=== PATIENT | male | born 2000 | race Caucasian/White ===

== ENCOUNTER 2025-04-09 22:50 | Emergency (ER) | payer OTHER, SELFPAY ==
[2025-04-09 22:50] VITALS: BP 144/93; PULSE 86; RESP 18; TEMP 36.6; O2SAT 98; BMI 18.8
--- NOTE | 2025-04-09 22:59 | EDS_ITS ---
HPI History of Present Illness Chief Complaint: Lower Extremity Injury Informant: patient and friend Narrative Narrative: Healthy 24-year-old injured his right foot almost 2 days ago. States initially could not walk on it due to pain, but now has been able to although it is painful. He states he got his feet tangled up in some things on the ground and somehow injured them, he is not sure if it twisted or if he smacked it on something, but he did sustain a little scrape within the part of the foot within his shoe that had some minor bleeding at the time. He denies any systemic symptoms such as fevers or chills, pain has been in the same place that was the entire time which is the lateral aspect of his right forefoot and a little bit in the middle of his foot laterally as well. Can move the ankle without any difficulty it is not bothering him and no other injuries or pain. PFSH PFSH Medical History no medical history no medical history Home Medications ?Medication ?Instructions ?Recorded ?Last Taken ?Type NK 04/09/25 Unknown History Allergy/AdvReac Type Severity Reaction Status Date / Time No Known Allergies Allergy Verified 04/09/25 22:51 ROS ROS ED Constitutional Constitutional ED: Denies chills or fever(s) Musculoskeletal Musculoskeletal: Reports extremity pain; Denies neck pain Integumentary Reports Abrasions; Denies rash or wounds Neurologic Neurologic: Denies paresthesias or weakness EXAM Physical Exam Const Vital Signs: 04/09/25 22:50 Temperature 97.9 F Temperature Source Oral Pulse Rate 86 Respiratory Rate 18 Blood Pressure 144/93 H Blood Pressure Mean 110 Pulse Ox 98 Oxygen Delivery Method Room Air Positive well nourished and well developed General Appearance ED: well developed and NAD Neck full ROM and supple Back/Spine normal ROM and normal to inspection Extremity Extremity Narrative: There is erythema and swelling right foot. Mostly dorsal. There are some layering ecchymosis see below. Most of the tenderness is in the distribution of the 4th and 5th metatarsals, the toes are nontender and he can move them, the an kle is nontender and he can move it without difficulty or instability. The midfoot is stable and for the most part nontender although it is swollen and erythematous and this limits part of the exam. No tenderness at the knee. Neuro oriented x3, no focal motor deficits and no sensory deficits noted Sensorium / Orientation: alert Psych mental status grossly normal and thought process normal Skin Skin Narrative: Minor superficial abrasion without tenderness dorsum of the right forefoot over the fourth ray or so. Entire dorsum of the right forefoot and lateral aspect of the midfoot is erythematous without skin tenderness. There is ecchymosis la yering at the calcaneus as well as the webspaces of the lateral 3 or 4 toes. Rashes: no rashes MDM MDM MDM Narrative Medical decision making narrative: Three-view x-ray series of the right foot on my interpretation shows a displaced fracture of the right distal fifth metatarsal, appears to be at the neck. No intra-articular involvement. This explains the amount of ecchymosis and swelling that he has in this area. He is given a postop shoe and advised to follow-up with podiatry as an outpatient. Will be offered crutches if he needs them. Discharge Plan Triage Chief Complaint: Lower Extremity Injury ED Provider: Elliott Wang Dx/Rx/DC Orders Clinical Impression: Closed displaced fracture of fifth metatarsal bone of right foot Instructions: ED Fracture, Foot Prescriptions: No Action NK Primary Care Provider: Care Physician,No Primary Referrals: Jourdan Good DPM [Med Staff - Active Staff] - As soon as possible Print Language: Algerian Disposition Disposition: Home, Self Care
--- NOTE | 2025-04-09 23:12 | RAD_ITS ---
PROCEDURE: FOOT MIN 3 VIEWS 04/09/2025 REASON FOR EXAM: INJURY TECHNIQUE: FOOT MIN 3 VIEWS COMPARISON: none RAD/Foot min 3 Views IMPRESSION: Acute fracture of the head of the fifth metatarsal without articular involvemen t. No dislocations. No significant degenerative changes. No large joint effusion. Associated moderate soft tissue edema. no radiographic foreign body. Reading Location: [facility]
--- OUTSIDE RECORDS SUMMARY | 2025-04-09 23:44 | XMS RPT_ITS | CCD ---
Author Organization [facility] Care Team Providers Care Bakery Supervisor Name Role Phone DR KEV NOBLES Attending Unavailable M[place], DR KEV Haynes Primary Care Unavailable DR KEV NOBLES Admitting Unavailable Elliott Wang Attending Unavailable Care Physician, No Primary Primary Care Unava ilable Results Test Name Value Interpretation Reference Range Facil [facility] EMERGENCY REPORTon 2 EMERGENCY REPORT [facility] EMERGENCY ROOM REPORT NAME ACCOUNT SEX AGE ADMIT DISCHARGE PT MED. RECORD# NUMBER DATE DATE TYPE NAZ [id number] Olive 04/30/22 04/30/22 3 CALLI Weiss [id number] ROOM: ER DATE OF : 2000 DICTATING PHYSICIAN: Kev Nobles CHIEF COMPLAINT: Finger injury. HISTORY OF PRESENT ILLNESS: The patient states that at work he got his finger smashed in a tailgate. He states that he has a laceration to that area and presents for evaluation. PAST MEDICAL HISTORY: Negative for medical problems. PHYSICAL EXAMINATION: GENERAL: This is a 21-year-old thin male who is alert and appropriate. He does not appear toxic. EXTREMITIES: Examination was focused to the left hand, specifically the left third finger. The patient has a superficial laceration across the volar aspect of the distal phalanx with a superficial avulsion to the site of the nail. There is no active bleeding. No appreciable soft tissue swelling. Normal neurovascular examination. Normal range of motion. DIAGNOSTIC DATA: X-ray of the finger was negative. EMERGENCY DEPARTMENT COURSE AND TREATMENT: I did use some Dermabond to place over the superficial laceration, which mainly was just through the epidermis. A dressing was placed to the area. I recommended keeping this covered, using a glove. Tylenol or ibuprofen for pain. Follow up with occupational medicine in a day or two if needed. DIAGNOSIS: Superficial laceration/contusion to left third finger. Dictated By: Kev Nobles MD 04/30/22 08:53 JOB #: [id number] Transcribed By: shruthi 05/01/22 15:44 Electronically signed by: CAROL Nobles M.D. 05/07/22 09:57 Page 1 of 1 CALLI CHILDS Emergency Room Report Normal [facility] FINGERS LTon 04-30-2022 FINGERS [facility] [address] [address] Patient: CALLI CHILDS. Phone#: : 2000 Age: 21 Gender: M Pt. Type: ER Account: [id number] Location: 2 Ordering: KEV NOBLES Exam Date: 04/30/2022/8:32 Family Phys: Charge Code: [id number] Physician: [place] Order #: [id number] DLP Dose#: PROCEDURE: X-RAY FINGER LT MIN 2 VIEWS COMPARISON: None. INDICATIONS: Injury. FINDINGS: BONES: Normal. No significant arthropathy or acute abnormality. SOFT TISSUES: Negative. No visible soft tissue swelling. EFFUSION: None visible. OTHER: Negative. CONCLUSION: 1. No acute osseous abnormality Dictated by: Dorothy Tovar MD on 04/30/2022 at 8:37 Approved by: Dorothy Tovar MD on 04/30/2022 at 8:40 Normal [facility] Encounters Encounter Date Encounter Type Care Provider Facility Start: 04-09-2025 [facility] Facility :[facility] Start: 04-30-2022 End: 04-30-2022 Emergency department patient visit DR KEV NOBLES [facility] Payers Date Payer Category Payer Self-pay Summary Purpose Family History No Family History Records FoundNo Family History Records Found Advance Directives No Advanced Directives Records FoundNo Advanced Directives Records Found Additional Source Comments (unrecognized sect ion and content) No Status Records FoundNo Status Records Found INFORMATION SOURCE (unrecogn ized section and content) DATE CREATED AUTHOR 05/10/2022 [facility] DATE CREATED AUTHOR AUTHOR'S ORGANIZ ATION 04/09/2025 [facility] FOR RECORDS PERTAINING TO PATIENTS WHO ARE OR HAVE BEEN ENROLLED IN A CHEMICAL DEPENDENCY/SUBSTANCEABUSE PROGRAM, SOME INFORMATION MAY BE OMITTED. This clinical summary was aggregated from multiple sources. Caution should be exercised in using it in the provision of clinical care. This summary normalizes information from multiple sources, and as a consequence, information in this document may materially change the coding, format and clinical context of patient data. In addition, data may be omitted in some cases. CLINICAL DECISIONS SHOULD BE BASED ON THE PRIMARY CLINICAL RECORDS. [facility]. provides no warranty or guarantee of the accuracy or completeness of information in this document.
== END 2025-04-10 00:02 | disposition home or self-care (01) ==
PROVIDERS: Emergency Provider Emergency Medicine; Visit Provider Emergency Medicine
DX: S92.351A Displaced fracture of fifth metatarsal bone, right foot, initial encounter for closed fracture (principal); X58.XXXA Exposure to other specified factors, initial encounter
CPT/HCPCS: 73630; 99284